=== PATIENT | male | born 1960 | race Caucasian/White ===

== ENCOUNTER 2017-08-22 15:28 | Emergency (ER) | payer OTHER ==
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
[2017-08-22] MEDS ORDERED: Sodium Chloride 0.9% 10 ML Syringe FLUSH PRN (15:45)
[2017-08-22] MEDS ORDERED: Iopamidol 612 MG/ML 150 ML Bottle IVPUSH ONE (15:45)
[2017-08-22] MEDS ORDERED: Sodium Chloride 0.9% 1,000 ML IV SCH (15:45)
--- NOTE | 2017-08-22 16:44 | CT ---
Head CT Technique: Multiple axial sections through the brain were obtained. Intravenous contrast was not utilized. Comparison: No previous CT study. Findings: Ventricles along the basal cisterns and sulci over convexities are mildly prominent. No abnormal parenchymal densities are seen. No evidence of intracranial hemorrhage. No midline shift or mass effect is seen. Bone window settings were reviewed which shows minimal mucosal thickening within the ethmoid sinuses and right maxillary sinus. No acute calvarial abnormality is appreciated. Impression: 1. Mild atrophy. Sinus findings which are felt to be incidental. 2. No acute intracranial abnormality is identified. No acute skull abnormality is seen. Diagnostic code #2
--- NOTE | 2017-08-22 16:49 | CT ---
CT facial bones Technique: Multiple axial sections through the facial bones were obtained. Intravenous contrast not utilized. Findings: Minimal mucosal thickening within the right maxillary sinus is seen. Mild mucosal thickening is scattered within the ethmoid sinuses. No air-fluid levels are seen within the paranasal sinuses. Mild mucosal thickening also noted within the frontal sinuses. Mild degenerative change is noted within the temporomandibular joints. Multiple dental caries appear to be present. No facial bone fracture is identified. Impression: 1. Sinus findings which are likely incidental. 2. Multiple dental caries appear to be present. 3. No acute facial bone abnormality is seen. 4. Incidental degenerative change within the temporomandibular joints. Diagnostic code #3
--- NOTE | 2017-08-22 16:49 | CT ---
CT cervical spine Technique: Multiple axial sections were obtained from above C1 inferiorly to the lower T2 level. Reconstructed sagittal and coronal imaging. Comparison: No previous study. Findings: Moderate to severe disc space narrowing is noted at C3-4, C4-5, C5-6 and C6-7. Posterior osteophytes are seen at C3-4 through C6-7. Anterior osteophytes are noted primarily at C5-6 and C6-7. Vertebral body heights are maintained. Visualized mastoid sinuses and middle ear cavities are clear. Posterior skull base is intact. Moderate right-sided neural foraminal stenosis noted at C4-5. Small amount of epidural air noted at C4-5 which is felt to be incidental. Other neural foramina are felt to be fairly well patent. Vertebral bodies and posterior arches are intact with no fracture being seen. Incidental ligamentum nuchal calcification is seen. Several air cysts are seen within the C3 through C6 vertebral bodies which is felt to be degenerative in etiology. Degenerative spurring is noted within the uncovertebral joints from C3-4 through C6-7. No abnormal subluxation is seen. Impression: 1. Degenerative change as noted above. 2. Nothing acute is identified on CT study of the cervical spine. Diagnostic code #2
--- NOTE | 2017-08-22 16:53 | CT ---
CT thoracic spine Technique: Multiple axial sections were obtained through the thoracic spine. Reconstructed sagittal and coronal images were reviewed. Comparison: No previous thoracic spine imaging. Findings: Mild disc space narrowing is noted within the mid and lower thoracic spine. Multiple levels of vacuum phenomena are seen within the discs within the mid and lower thoracic spine. Vertebral body heights are maintained. No bony central or bony neural foraminal stenosis is seen. No abnormal subluxation is seen. No fracture is identified. Impression: 1. Mild degenerative change. 2. Nothing acute is seen on CT study of the thoracic spine. Diagnostic code #2
--- NOTE | 2017-08-22 16:54 | CT ---
CT lumbar spine Technique: Multiple axial sections were obtained through the lumbar spine. Reconstructed sagittal and coronal images were reviewed. Comparison: No previous lumbar spine imaging. Findings: Mild posterior disc space narrowing is noted at L1-L2, L4-5 and L5-S1. Vertebral bodies and posterior arches are intact. No fracture is identified. Very minimal disc bulges are seen. No focal disc herniation is seen. No central canal stenosis or neural foraminal stenosis is seen. No abnormal subluxation is seen on the reconstructed sagittal images. Impression: 1. Minimal degenerative change. No acute fracture or abnormal subluxation is seen on CT study of the lumbar spine. Diagnostic code #2
--- NOTE | 2017-08-22 17:03 | CT ---
CT chest Technique: Multiple axial sections through the chest were obtained. Intravenous contrast was utilized. Comparison: No prior chest imaging. Findings: No pericardial thickening is seen. Mediastinum and hilar regions show no adenopathy or mass. Opacified great vessels appear within normal limits. Minimal dependent atelectasis is noted posteriorly within both lungs. No pulmonary contusion is seen. Minimal nodule is noted within the right upper lung measuring 3.4 mm. Lungs otherwise are clear. No pneumothorax is seen. Bone window settings were reviewed which shows no discrete rib fracture. Impression: 1. Small cyst nodule within the right upper lung measuring 3.4 mm. If patient is not a smoker this can be ignored. If patient is a smoker, recommend repeat noncontrast chest CT in one year. 2. Nothing acute is seen on CT study of the chest. Diagnostic code #3 CT abdomen and pelvis Technique: Multiple axial sections were obtained from above the dome of the diaphragm inferiorly through the pubic symphysis. Intravenous contrast was utilized. No oral contrast has been given. Findings: Liver shows no abnormality. Surgical clips are seen from prior cholecystectomy. Spleen appears within normal limits. Small hiatal hernia is seen. Adrenal glands show no nodule. Kidneys show symmetric contrast enhancement without hydronephrosis or mass. Pancreas is within normal limits. Aorta shows no aneurysmal dilatation. Mild atherosclerotic change is seen within the aorta. No retroperitoneal adenopathy or mesenteric abnormalities are seen. Appendix is seen which appears normal. No pelvic mass or adenopathy is seen. No free fluid or inflammatory change is identified within the abdomen or within the pelvis. Bone window settings were reviewed which shows no acute pelvic fracture. There is a defect being seen out of the left iliac wing presumably due to previous surgery. There is some adjacent fat replaced muscle being seen in this area. Impression: 1. Findings which are felt to be incidental as described above. 2. Nothing acute is identified on CT study of the abdomen and pelvis. Diagnostic code #2
--- NOTE | 2017-08-25 07:40 | CR ---
Right ankle: Three views of the right ankle were obtained. Comparison: No prior study. Ankle mortise is symmetric. No fracture, dislocation or other bony abnormality is identified. Impression: 1. No abnormality is identified on three-view right ankle exam. Diagnostic code #1
--- NOTE | 2017-08-25 07:40 | CR ---
Left femur: AP and lateral views of the left femur were obtained. Comparison: No prior study. Joint spaces within the knee and hip are preserved. No fracture or other bony abnormality is seen. Impression: 1. No abnormality is seen on left femur study. Diagnostic code #1
== END 2017-08-22 17:39 | disposition home or self-care (01) ==
LOC: SUPCPDRO 15:28 → MERGE 15:28 → JD.ED 15:28
DX: S13.9XXA Sprain of joints and ligaments of unspecified parts of neck, initial encounter (principal); S00.83XA Contusion of other part of head, initial encounter; S70.12XA Contusion of left thigh, initial encounter; S20.211A Contusion of right front wall of thorax, initial encounter; V53.5XXA Driver of pick-up truck or van injured in collision with car, pick-up truck or van in traffic accident, initial encounter; Y92.415 Exit ramp or entrance ramp of street or highway as the place of occurrence of the external cause
CPT/HCPCS: 36415; 70450; 70486; 71260; 72125; 72128; 72131; 73552; 73610; 74177; 80053; 81001; 82150; 82550; 85025; 99285; J7050; Q9967

== ENCOUNTER 2018-04-04 13:20 | Emergency (ER) | payer OTHER ==
[2018-04-04] MEDS ORDERED: Sodium Chloride 0.9% 10 ML Syringe FLUSH PRN (13:45)
--- NOTE | 2018-04-04 13:53 | EDM.PDOC ---
ED HPI GENERAL MEDICAL PROBLEM - General Chief Complaint: Syncope Stated Complaint: DIZZY, SPITTING UP BLOOD, LIGHT HEADED Time Seen by Provider: 04/04/18 13:35 Source of Information: Reports: Patient History Limitations: Reports: No Limitations - History of Present Illness INITIAL COMMENTS - FREE TEXT/NARRATIVE: Patient nancy 57 year old male who presents to the E.D. complaining of spitting up blood, intermittent dizziness with body position changes, and increased fatigue. States symptoms started after taking a bath. Upon finishing up with the bath he spit up blood for unknown reason. States Continues to be tired. Dizziness is improving. He has history of acid reflux and take nexium with no new results. States he can taste blood in his mouth. states the patient has been complaining of URI symptoms including: faint cough, runny nose, and sinus congestion. Patient has faint pressure to the lower sternal border with no radiation or known provoking factors. Denies recent bloody nose and or coughing up blood. He has no history of TB, Fevers, fevers/chills, night sweats , pain to lower extremities, CP, SOB, and or any additional complaints. Patient has history of GERD on Nexium. Patient has a history of anxiety and depression on buspirone and also citalopram. He does not smoke. Denies excessive alcohol use and or recreational drugs. - Related Data Allergies Allergy/AdvReac Type Severity Reaction Status Date / Time No Known Allergies Allergy Verified 08/22/17 15:38 Home Meds: Home Meds Escitalopram [Lexapro] 20 mg PO DAILY 08/22/17 [History] Esomeprazole Magnesium [Nexium] 40 mg PO DAILY 08/22/17 [History] Albuterol [Proventil HFA] 2 puff INH Q4H PRN 04/04/18 [History] Hydrocortisone [Preparation H] 26 gm TP Q12H 04/04/18 [History] busPIRone [Buspar] 10 mg PO BID 04/04/18 [History] Past Medical History HEENT History: Reports: Impaired Vision Gastrointestinal History: Reports: GERD Musculoskeletal History: Reports: Fracture Other Musculoskeletal History: fingers right Psychiatric History: Reports: Anxiety, Depression - Past Surgical History Musculoskeletal Surgical History: Reports: Arthroscopic Knee Social & Family History - Family History Family Medical History: Noncontributory - Tobacco Use Smoking Status *Q: Unknown Ever Smoked - Caffeine Use Caffeine Use: Reports: None - Recreational Drug Use Recreational Drug Use: No - Living Situation & Occupation Living situation: Reports: Occupation: Employed ED ROS GENERAL - Review of Systems Review Of Systems: ROS reveals no pertinent complaints other than HPI. ED EXAM, DIZZINESS - Physical Exam Exam: See Below Exam Limited By: No Limitations General Appearance: Alert, WD/WN, No Apparent Distress Eye Exam: Bilateral Eye: Normal Inspection, PERRL Nystagmus: No: worsens with head to L, worsens with head to R, reproducible, reversible, constant, short duration Ears: Normal External Exam, Normal Canal, Hearing Grossly Normal, Normal TMs Nose: Normal Inspection, Normal Mucosa, No Blood Throat/Mouth: Normal Inspection, Normal Oropharynx, Normal Voice, No Airway Compromise, Other (small amount of dried blood to the right upper lip. No blood to the oropharynx noted. ) Vertigo: No: worsens with head to L, worsens with head to R, reproducible, reversible, constant, short duration Neck: Normal Inspection, Supple, Non-Tender Respiratory/Chest: No Respiratory Distress, Lungs Clear, Normal Breath Sounds, No Accessory Muscle Use, Chest Non-Tender Cardiovascular: Normal Peripheral Pulses, Regular Rate, Rhythm, No Murmur GI/Abdominal: Normal Bowel Sounds, Soft, Non-Tender, No Organomegaly, No Distention Neurological: Alert, Normal Mood/Affect, Normal Dorsiflexion, CN II-XII Intact, Normal Plantar Flexion, No Motor/Sensory Deficits, Oriented x 3 Back Exam: Normal Inspection Extremities: Normal Inspection, Normal Range of Motion, Non-Tender, No Pedal Edema, Normal Capillary Refill Psychiatric: Normal Affect, Normal Mood Skin Exam: Warm, Dry, Intact, Normal Color, No Rash Course - Vital Signs Last Recorded V/S: Last Vital Signs Temp 98.4 F 04/04/18 13:29 Pulse 100 04/04/18 13:29 Resp 18 04/04/18 13:29 BP 130/77 04/04/18 13:29 Pulse Ox 100 04/04/18 13:29 Orthostatic Blood Pressure [ 108/76 Standing] Orthostatic Blood Pressure [ 110/78 Sitting] Orthostatic Blood Pressure [ 98/69 Supine] - Orders/Labs/Meds Orders: Active Orders 24 hr Category Date Time Status EKG 12 Lead [EKG Documentation Completion] [RC] STAT Care 04/04/18 13:51 Active Orthostatic Vital Signs [RC] ASDIRECTED Care 04/04/18 13:45 Active Peripheral IV Care [RC] . DIRECTED Care 04/04/18 13:45 Active Chest 1V Frontal [CR] Stat Exams 04/04/18 13:44 Taken Peripheral IV Insertion Adult [OM.PC] Routine Oth 04/04/18 13:45 Ordered Labs: Laboratory Tests 04/04/18 04/04/18 04/04/18 Range/Units 13:35 13:35 13:35 WBC 5.58 (4.23-9.07) K/mm3 RBC 5.11 (4.63-6.08) M/mm3 Hgb 14.8 (13.7-17.5) gm/L Hct 44.2 (40.1-51.0) % MCV 86.5 (79.0-92.2) fl MCH 29.0 (25.7-32.2) pg MCHC 33.5 (32.2-35.5) g/dl RDW Std Deviation 40.0 (35.1-43.9) fL Plt Count 177 (163-337) K/mm3 MPV 10.2 (9.4-12.3) fl Neutrophils % (Manual) 65 H (40-60) % Band Neutrophils % 0 (0-10) % Lymphocytes % (Manual) 28 (20-40) % Atypical Lymphs % 0 % Monocytes % (Manual) 6 (2-10) % Eosinophils % (Manual) 1 (0.8-7.0) % Basophils % (Manual) 0 L (0.2-1.2) Platelet Estimate Adequate RBC Morph Comment Normal PT 11.4 (9.5-12.1) SECONDS INR 1.05 APTT 30 (24-31) SECONDS Sodium 143 (136-145) mEq/L Potassium 3.1 L (3.5-5.1) mEq/L Chloride 109 H (98-107) mEq/L Carbon Dioxide 25 (21-32) mEq/L Anion Gap 12.1 (5-15) BUN 12 (7-18) mg/dL Creatinine 1.0 (0.7-1.3) mg/dL Est Cr Clr Drug Dosing 71.75 mL/min Estimated GFR (MDRD) > 60 (>60) mL/min BUN/Creatinine Ratio 12.0 L (14-18) Glucose 203 H (74-106) mg/dL Calcium 8.2 L (8.5-10.1) mg/dL Total Bilirubin 0.3 (0.2-1.0) mg/dL AST 19 (15-37) U/L ALT 25 (16-63) U/L Alkaline Phosphatase 85 (46-116) U/L Troponin I < 0.017 (0.00-0.056) ng/mL Total Protein 6.8 (6.4-8.2) g/dl Albumin 3.4 (3.4-5.0) g/dl Globulin 3.4 gm/dL Albumin/Globulin Ratio 1.0 (1-2) TSH 3rd Generation 2.494 (0.358-3.74) uIU/mL 04/04/18 Range/Units 16:39 WBC (4.23-9.07) K/mm3 RBC (4.63-6.08) M/mm3 Hgb (13.7-17.5) gm/L Hct (40.1-51.0) % MCV (79.0-92.2) fl MCH (25.7-32.2) pg MCHC (32.2-35.5) g/dl RDW Std Deviation (35.1-43.9) fL Plt Count (163-337) K/mm3 MPV (9.4-12.3) fl Neutrophils % (Manual) (40-60) % Band Neutrophils % (0-10) % Lymphocytes % (Manual) (20-40) % Atypical Lymphs % % Monocytes % (Manual) (2-10) % Eosinophils % (Manual) (0.8-7.0) % Basophils % (Manual) (0.2-1.2) Platelet Estimate RBC Morph Comment PT (9.5-12.1) SECONDS INR APTT (24-31) SECONDS Sodium (136-145) mEq/L Potassium (3.5-5.1) mEq/L Chloride (98-107) mEq/L Carbon Dioxide (21-32) mEq/L Anion Gap (5-15) BUN (7-18) mg/dL Creatinine (0.7-1.3) mg/dL Est Cr Clr Drug Dosing mL/min Estimated GFR (MDRD) (>60) mL/min BUN/Creatinine Ratio (14-18) Glucose (74-106) mg/dL Calcium (8.5-10.1) mg/dL Total Bilirubin (0.2-1.0) mg/dL AST (15-37) U/L ALT (16-63) U/L Alkaline Phosphatase (46-116) U/L Troponin I < 0.017 (0.00-0.056) ng/mL Total Protein (6.4-8.2) g/dl Albumin (3.4-5.0) g/dl Globulin gm/dL Albumin/Globulin Ratio (1-2) TSH 3rd Generation (0.358-3.74) uIU/mL Meds: Medications Discontinued Medications Generic Name Dose Route Start Last Admin Trade Name Freq PRN Reason Stop Dose Admin Al Hydroxide/Mg Hydroxide 30 0 ml 04/04/18 15:38 04/04/18 15:55 ml/ Lidocaine HCl 15 ml PO 04/04/18 15:39 45 ml ONETIME ONE Administration Sodium Chloride 1,000 mls @ 150 mls/hr 04/04/18 14:00 04/04/18 13:59 Normal Saline IV 150 mls/hr ASDIRECTED NAKIA Administration Potassium Chloride 40 meq 04/04/18 15:05 04/04/18 15:12 Klor-Con M20 PO 04/04/18 15:06 40 meq DAILY ONE Administration Sodium Chloride 10 ml 04/04/18 13:45 04/04/18 13:59 Saline Flush FLUSH 10 ml ASDIRECTED PRN Administration Keep Vein Open - Re-Assessments/Exams Free Text/Narrative Re-Assessment/Exam: Upon examination patient's vital signs are stable. Complains of slight dizziness with body position changes. No presyncope or syncopal episode noted. Has spit up blood x1 that has since resolved. No blood noted to the posterior pharynx. No epigstric pain and or history of alcohol abuse. He has no history of GI bleed. IV established with NS. Initial labs and studies include CBC, chem 14, coag studies, troponin, TSH, chest x-ray one view, and orthostatic vitals. Orthostatic vitals were negative. EKG sinus rhythm at a rate of [address] changes noted. Chest x-ray reviewed with Dr. Joiner did not indicate any acute findings. Final interpretation is pending. Labs reviewed: CBC essentially normal, potassium of 3.1, creatinine 1.0, glucose 23, troponin within normal limits, TSH within normal limits. EKG: T wave flattening inferior leads. Subtle St depression lateral leads. No stemi. I have opted to obtain 3 hr troponin. 08/22/17 CT Chest impression: Small cyst nodule within the right upper lung measuring 3.4 mm. The patient is not a smoker then this can be ignored. If patient is a smoker, recommend repeat noncontrast chest CT in 1 year. Nothing acute is seen on CT study of the chest. Patient is not a smoker. Reassessment, patient continues to have a bit of pressure to the lower sternal border. He does not rate it on the scale of 0-10. I will order a GI cocktail with his history of acid reflux. Again states he did not cough up the blood, but spit it up. He's had no further spit up since admission to the ED. Departure - Departure Time of Disposition: 17:33 Disposition: Home, Self-Care 01 Condition: Good Clinical Impression: Hyperglycemia, Spitting up blood, Hypokalemia - Discharge Information Instructions: Hypokalemia, Hyperglycemia, [id number] Referrals: Cady Arizmendi SEWING MACHINIST [Primary Care Provider] - Forms: ED Department Discharge Additional Instructions: As discussed do not have a reason to why you spit up blood. Only conclusion I can come up with is the cut to the upper lip bled causing it to enter your mouth. Upon admission there was a small area of active bleeding with larger area of dried blood. In addition heaviness to chest was resolved with GI cocktail suggesting related to the stomach/esophagus irritation. Thus will have you continue taking the nexium as prescribed. May utilize maalox intermittently throughout the day for flareups. Refrain from any foods and or liquids that cause increased irritation. 2 troponins were obtained and came back WNL suggesting not related to your heart as well. CXR did not reveal any acute findings. Blood sugar was elevated with evaluation suggest seeing your PCP this coming week for reevaluation. Potassium was mildly low thus have provided educational information on how to increase through diet. Please return to the E.D. if you develop any new or worsening symptoms. - My Orders Last 24 Hours: My Active Orders 04/04/18 13:44 Chest 1V Frontal [CR] Stat 04/04/18 13:45 Orthostatic Vital Signs [RC] ASDIRECTED Peripheral IV Care [RC] . DIRECTED Peripheral IV Insertion Adult [OM.PC] Routine 04/04/18 13:51 EKG 12 Lead [EKG Documentation Completion] [RC] STAT - Assessment/Plan Last 24 Hours: My Active Orders 04/04/18 13:44 Chest 1V Frontal [CR] Stat 04/04/18 13:45 Orthostatic Vital Signs [RC] ASDIRECTED Peripheral IV Care [RC] . DIRECTED Peripheral IV Insertion Adult [OM.PC] Routine 04/04/18 13:51 EKG 12 Lead [EKG Documentation Completion] [RC] STAT
[2018-04-04] MEDS ORDERED: Sodium Chloride 0.9% 1,000 ML IV SCH (14:00)
[2018-04-04] MEDS ORDERED: Potassium Chloride 20 MEQ Tab.ER PO ONE (15:05)
[2018-04-04] MEDS ORDERED: Alum Hydrox/Mag Hydrox/Simeth 30 ML, Lidocaine 2% 15 ML PO ONE ×2 (15:38)
--- NOTE | 2018-04-06 08:25 | CR ---
Chest: Portable view of the chest was obtained. Comparison: No prior chest x-ray. Heart size is normal. Tortuous thoracic aorta is seen. Lungs are clear. Small nodule noted on CT exam of 08/22/17 is too small to identify by chest x-ray. Impression: 1. Findings as noted above. Nothing acute is seen. Diagnostic code #2
== END 2018-04-04 18:03 | disposition home or self-care (01) ==
LOC: JD.ED 13:20
DX: E87.6 Hypokalemia (principal); R73.9 Hyperglycemia, unspecified; R04.2 Hemoptysis; K21.9 Gastro-esophageal reflux disease without esophagitis; Z79.899 Other long term (current) drug therapy
CPT/HCPCS: 36415; 71045; 80053; 84443; 84484; 85007; 85027; 85610; 85730; 93005; 96360; 96361; 99284; A9270; J7040; J7050

== ENCOUNTER 2020-09-19 14:06 | Emergency (ER) | payer OTHER ==
[2020-09-19 16:39] LABS: ACETAMINOPHEN 0 ug/mL (10-30)
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
== END 2020-09-19 20:00 ==
LOC: JD.ED 14:06
DX: F32.9 Major depressive disorder, single episode, unspecified (principal); F41.9 Anxiety disorder, unspecified; K21.9 Gastro-esophageal reflux disease without esophagitis; Z87.891 Personal history of nicotine dependence; Z79.899 Other long term (current) drug therapy; Z20.828 Contact with and (suspected) exposure to other viral communicable diseases
CPT/HCPCS: 36415; 80053; 80306; 80307; 84443; 85007; 85027; 93005; 93010; 99284; 99285-25; U0002

== ENCOUNTER 2023-09-05 18:10 | Emergency (ER) | payer OTHER ==
[2023-09-05] MEDS ORDERED: Ketorolac 30 MG/ML SDV IVPUSH ONE (18:55)
[2023-09-05] MEDS ORDERED: diphenhydrAMINE 50 MG/ML SDV IVPUSH ONE (18:55)
[2023-09-05] MEDS ORDERED: Prochlorperazine 10 MG/2 ML SDV IVPUSH ONE (18:55)
[2023-09-05] MEDS ORDERED: Sodium Chloride 0.9% 10 ML Syringe FLUSH PRN (18:56)
[2023-09-05 19:04] LABS: BASOPHILS ABSOLUTE AUTO 0.1 K/mm3 (0.0-0.2); BASOPHILS PERCENT AUTO 0.8 % (0.0-1.0); EOSINOPHILS ABSOLUTE AUTO 0.1 K/mm3 (0.0-0.4); EOSINOPHILS PERCENT AUTO 1.1 % (0.0-6.0); HEMATOCRIT 44.1 % (42.0-52.0); IMMATURE GRAN ABSOLUTE AUTO 0.05 K/mm3 (0.00-0.05); IMMATURE GRAN PERCENT AUTO 0.6 % (0.0-0.4); LYMPHOCYTES ABSOLUTE AUTO 2.5 K/mm3 (1.0-4.8); LYMPHOCYTES PERCENT AUTO 27.8 % (24.0-44.0); MEAN CORPUSCULAR VOLUME 88.2 fl (83.0-99.0); MONOCYTES ABSOLUTE AUTO 0.7 K/mm3 (0.0-0.8); MONOCYTES PERCENT AUTO 8.1 % (0.0-8.0); NEUTROPHILS ABSOLUTE AUTO 5.5 K/mm3 (1.8-7.7); NEUTROPHILS PERCENT AUTO 61.6 % (41.0-71.0); PLATELET COUNT,PLT 192 K/mm3 (150-400); WHITE BLOOD CELL COUNT,WBC 8.88 K/mm3 (3.9-11.3)
[2023-09-05 19:50] LABS: A/G RATIO 1.1 (1-2); ALBUMIN 3.7 g/dl (3.4-5.0); ANION GAP 13.8 (5-15); BILIRUBIN TOTAL 0.4 mg/dL (0.2-1.0); EST CRCL DRUG DOSING (CG) 67.48 mL/min; POTASSIUM,K 3.8 mEq/L (3.5-5.1); PROTEIN TOTAL,TP 7.1 g/dl (6.4-8.2)
== END 2023-09-05 21:23 | disposition home or self-care (01) ==
LOC: JD.ED 18:10
DX: R42 Dizziness and giddiness (principal); R55 Syncope and collapse; R07.89 Other chest pain; K21.9 Gastro-esophageal reflux disease without esophagitis; Z79.899 Other long term (current) drug therapy
CPT/HCPCS: 36415; 80053; 82947; 84484; 85025; 93005; 93246; 96374; 96375; 99284; J0780; J1200; J1885; J3490; 93010